=== PATIENT | male | born 1935 | race Caucasian/White ===

== ENCOUNTER 2020-10-20 15:28 | Emergency (ER) | payer MEDICARE, OTHER ==
[~2020-10-20] VITALS: Ht 170.2 cm; Wt 63.5 kg
--- NOTE | 2020-10-20 15:35 | NUR ---
PT [id number], from home, had syncopal episode, BS 122. VS checked. hooked on monitor. awaiting md esquivel.
--- NOTE | 2020-10-20 15:50 | NUR ---
pt states he still is unable to pee right now. made aware
[2020-10-20 15:53] LABS: BASOPHILS # (AUTO) 0.1 /CMM (0.0-0.2); BASOPHILS % (AUTO) 2.1 % (0.0-2.0); EOSINOPHILS % (AUTO) 1.6 % (0.0-6.0); HEMATOCRIT 44 % (39-51); HEMOGLOBIN 14.7 g/dL (13.5-17.5); LYMPHOCYTES # (AUTO) 1.9 /CMM (0.8-4.8); LYMPHOCYTES % (AUTO) 28.1 % (20.0-44.0); MEAN CORPUSCULAR HGB CONC 33 g/dl (31.0-36.0); MEAN CORPUSCULAR VOLUME 103 fL (80-96); MONOCYTES # (AUTO) 0.7 /CMM (0.1-1.30); MONOCYTES % (AUTO) 10.5 % (2.0-12.0); NEUTROPHILS % (AUTO) 57.7 % (43.0-81.0); PLATELET COUNT (AUTO) 146 /CMM (150-450); WHITE BLOOD COUNT (AUTO) 6.9 K/uL (4.3-11.0)
[2020-10-20] MEDS ORDERED: IV NS 0.9% 1,000 ML BAG IV ONE (16:00)
[2020-10-20 16:17] LABS: CALCIUM, SERUM 9.4 mg/dL (8.5-10.1); CARBON DIOXIDE 27 mmol/L (21-32); CHLORIDE 102 mmol/L (98-107); CREATININE 1.4 mg/dL (0.6-1.3); GLUCOSE 141 mg/dL (74-106); POTASSIUM 4.2 mmol/L (3.5-5.1); SODIUM SERUM 140 mmol/L (136-145); UREA NITROGEN, BLOOD 32 mg/dL (7-18)
[2020-10-20 16:27] LABS: ALANINE AMINOTRANSFERASE 28 U/L (12-78); ALBUMIN 3.2 g/dL (3.4-5.0); ALKALINE PHOSPHATASE 94 U/L (46-116); ASPARTATE AMINOTRANSFERASE 36 U/L (15-37); BILIRUBIN,DIRECT 0.9 mg/dL (0.0-0.2); BILIRUBIN,TOTAL 1.7 mg/dL (0.2-1.0); TOTAL PROTEIN, SERUM 7.7 g/dL (6.4-8.2)
[2020-10-20] MEDS ORDERED: FURO20TA4 PO (16:52)
[2020-10-20] MEDS ORDERED: ALLO300T2 PO (16:52)
[2020-10-20] MEDS ORDERED: ASPI-1169 PO (16:52)
[2020-10-20] MEDS ORDERED: LOSA25TA27 PO (16:52)
[2020-10-20] MEDS ORDERED: NITR0.4T48 SL (16:52)
[2020-10-20] MEDS ORDERED: FAMO40TA7 PO (16:52)
[2020-10-20] MEDS ORDERED: MAGN64TA13 PO (16:52)
[2020-10-20] MEDS ORDERED: MULT-24 PO (16:52)
[2020-10-20] MEDS ORDERED: CARV12.52 PO (16:52)
[2020-10-20] MEDS ORDERED: AMLO-212 PO (16:52)
[2020-10-20] MEDS ORDERED: SIMV-46 PO (16:52)
[2020-10-20] MEDS ORDERED: FOLI0.4T2 PO (16:52)
[2020-10-20] MEDS ORDERED: CHOL100040 PO (16:52)
[2020-10-20] MEDS ORDERED: HYDR-3972 PO (16:52)
[2020-10-20] MEDS ORDERED: LORA10TA7 PO (16:52)
[2020-10-20] MEDS ORDERED: SCOP1PAT11 TD (16:52)
[2020-10-20] MEDS ORDERED: TACR30OI4 TP (16:52)
[2020-10-20] MEDS ORDERED: ASCO-495 PO (16:52)
[2020-10-20] MEDS ORDERED: DABI110C PO (16:52)
--- NOTE | 2020-10-20 16:57 | NUR ---
pt still unable to provide urine specimen. provided with water
--- NOTE | 2020-10-20 17:44 | NUR ---
received a call from the lab regarding covid 19 result "negative", notified.
--- NOTE | 2020-10-20 18:15 | NUR ---
urine collected sent to lab
[2020-10-20 18:21] LABS: BILIRUBIN,URINE MODERATE (NEGATIVE); BLOOD, URINE Trace-intact Ery/uL (NEGATIVE); COLOR,URINE YELLOW (YELLOW); LEUKOCYTE ESTERASE ,URINE Negative (NEGATIVE); NITRITE, URINE Negative (NEGATIVE); PROTEIN,URINE Negative (NEGATIVE); UGLUCOSE Negative (NEGATIVE)
--- NOTE | 2020-10-20 18:25 | NUR ---
covid swab collected sent to lab
--- NOTE | 2020-10-20 18:28 | NUR ---
CALLED [facility] FOR PEER TO PEER.
[2020-10-20 18:29] LABS: BACTERIA,URINE Rare /HPF (None Seen); SQUAMOUS EPITHELIAL CELL,UR Few /HPF (None Seen); WBC,URINE NONE SEEN /HPF (0-3)
--- NOTE | 2020-10-20 19:54 | NUR ---
Patient is resting comfortably in bed with eyes closed. Easily aroused. VSS
--- NOTE | 2020-10-20 20:01 | NUR ---
PER [facility] AWAITING ACCEPTING DOC AND BED AT [facility]
--- NOTE | 2020-10-20 21:04 | NUR ---
TRANSFER INFO: PT GOING TO [facility] ACCEPTED BY DR CORDERO, RN FOR REPORT [phone], ALS [facility]N ETA [id number]
[2020-10-20 21:40] VITALS: BP 122/79
--- NOTE | 2020-10-20 21:42 | NUR ---
REPORT GIVEN TO JOVAN AT [facility] AT BED SIDE
== END 2020-10-20 21:45 | disposition short-term general hospital (02) ==
LOC: ER 15:34
DX: R55 Syncope and collapse (principal); E86.0 Dehydration; Z20.828 Contact with and (suspected) exposure to other viral communicable diseases; R94.31 Abnormal electrocardiogram [ECG] [EKG]; I48.91 Unspecified atrial fibrillation; Z95.810 Presence of automatic (implantable) cardiac defibrillator; I11.9 Hypertensive heart disease without heart failure
CPT/HCPCS: 36415; 71045; 80048; 80076; 81001; 84484; 85025; 87086; 87426; 93005; 96360; 99285; C9803; J7030